=== PATIENT | male | born 1965 | race Caucasian/White ===

== ENCOUNTER 2018-06-05 09:15 | Inpatient (IN) | payer OTHER, SELFPAY ==
[2018-06-05] MEDS ORDERED: Bivalirudin 250 MG VIAL ONE (09:27)
[2018-06-05] MEDS ORDERED: Heparin 10,000 UNITS/1 ML VIAL ONE ×3 (09:27→17:40)
[2018-06-05] MEDS ORDERED: Nitroglycerin 100MG/250ML BOT 0 ML ONE (09:27)
[2018-06-05] MEDS ORDERED: Ondansetron PF 4 MG/2 ML Vial ONE (09:27)
[2018-06-05] MEDS ORDERED: Metoprolol Tartrate 5 MG/5 ML VIAL ONE (09:28)
[2018-06-05 09:35] LABS: #Basophils 0.1 thou/uL (0.0-0.2); #Eosinphils 0.2 thou/uL (0.0-0.7); #Lymphocytes 1.8 thou/uL (1.20-3.40); #Monocytes 0.7 thou/uL (0.11-0.59); #Neutrophils 4.1 thou/uL (1.40-6.50); %Basophils 0.9 % (0.0-1.0); %Eosinophils 3.1 % (0.0-10.0); %Lymphocytes 26.4 % (21.0-51.0); %Monocytes 9.6 % (0.0-10.0); Hemoglobin 16.8 g/dL (14.0-18.0); Mean Corpuscular HGB CONC 35.1 g/dL (32.0-36.0); Mean Corpuscular Hemoglobin 30.5 pg (27.0-31.0); Mean Platelet Volume 8.1 fL (7.4-10.4); Platelet Count 227 thou/uL (130-400); RBC Distribution Width 11.5 % (11.5-14.5); Red Blood Cell (RBC) Count 5.53 mill/uL (4.70-6.10); White Blood Cell (WBC) Count 6.9 thou/uL (4.8-10.8)
[2018-06-05 09:41] LABS: PTT 28.6 SEC (22.9-36.1); Prothrombin Time 13.2 SEC (12.0-14.7)
[2018-06-05] MEDS ORDERED: Fentanyl 100 MCG/2 ML VIAL ONE (09:53)
[2018-06-05] MEDS ORDERED: Midazolam HCl 2 mg/2 ml Vial ONE (09:53)
[2018-06-05 09:58] LABS: ALT (SGPT) 41 U/L (8-55); AST (SGOT) 29 U/L (5-34); Albumin 4.7 g/dL (3.5-5.0); Alkaline Phosphatase 94 U/L (40-150); Anion Gap 15 mmol/L (10-20); BUN (Urea Nitrogen) 20 mg/dL (8.4-25.7); Bilirubin, Total 0.6 mg/dL (0.2-1.2); CK (CPK) 428 U/L (30-200); Calc. Creatinine Clearance 0 mL/min (70-130); Carbon Dioxide 25 mmol/L (22-29); Chloride 102 mmol/L (98-107); Estimated GFR-MDRD 67; Globulin 2.5 g/dL (2.4-3.5); Glucose 140 mg/dL (70-105); Lipase 33 U/L (8-78); Potassium 4.4 mmol/L (3.5-5.1); Protein, Total 7.2 g/dL (6.0-8.3); Sodium 138 mmol/L (136-145)
[2018-06-05] MEDS ORDERED: Clopidogrel Bisulfate 300 MG TAB ONE (10:08)
[2018-06-05] MEDS ORDERED: Nitroglycerin 0.4 MG TAB (25 Tab Bottle) SL PRN (10:22)
[2018-06-05] MEDS ORDERED: Morphine 4 MG/ML VIAL SLOW IVP PRN (10:22)
[2018-06-05] MEDS ORDERED: Aggrastat 12.5 MG/250 ML 250 ML ONE (10:25)
[2018-06-05] MEDS ORDERED: Sodium Chloride 0.9% 1,000 ML IV SCH (10:30)
[2018-06-05] MEDS ORDERED: Aggrastat 12.5 MG/250 ML 250 ML IVPB SCH (10:30)
[2018-06-05 10:45] VITALS: BMI 29.9
--- NOTE | 2018-06-05 11:05 | RAD ---
PORTABLE UPRIGHT FRONTAL CHEST RADIOGRAPH: DATE: 06/05/2018. COMPARISON: None. History Diaphoresis, chest pain, syncope. FINDINGS: No pneumothorax or pleural fluid. No focal consolidation or alveolar edema. Heart and mediastinal c ontour is unremarkable. IMPRESSION: No acute findings. POS: [facility]
[2018-06-05] MEDS: Amiodarone 450 MG in Dextrose 5% in Water 250 ML IVPB SCH ×2 (11:38→19:02)
[2018-06-05] MEDS: Morphine 2 MG/ML SYRINGE SLOW IVP PRN ×2 (14:17→21:25)
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
[2018-06-06 00:04] LABS: CKMB 33.1 ng/mL (0-6.6)
[2018-06-06 06:34] LABS: #Eosinphils 0.2 thou/uL (0.0-0.7); #Lymphocytes 2.1 thou/uL (1.20-3.40); #Monocytes 0.7 thou/uL (0.11-0.59); #Neutrophils 5.1 thou/uL (1.40-6.50); %Basophils 0.5 % (0.0-1.0); %Eosinophils 2.4 % (0.0-10.0); %Lymphocytes 25.2 % (21.0-51.0); %Monocytes 8.8 % (0.0-10.0); Hemoglobin 15.1 g/dL (14.0-18.0); Mean Corpuscular HGB CONC 34.7 g/dL (32.0-36.0); Mean Corpuscular Hemoglobin 30.4 pg (27.0-31.0); Mean Corpuscular Volume 87.6 fL (78.0-98.0); Mean Platelet Volume 8.2 fL (7.4-10.4); Platelet Count 216 thou/uL (130-400); RBC Distribution Width 11.5 % (11.5-14.5); Red Blood Cell (RBC) Count 4.97 mill/uL (4.70-6.10); White Blood Cell (WBC) Count 8.1 thou/uL (4.8-10.8)
[2018-06-06 06:57] LABS: ALT (SGPT) 37 U/L (8-55); AST (SGOT) 49 U/L (5-34); Albumin 3.9 g/dL (3.5-5.0); Alkaline Phosphatase 79 U/L (40-150); Anion Gap 12 mmol/L (10-20); BUN (Urea Nitrogen) 15 mg/dL (8.4-25.7); Bilirubin, Total 0.6 mg/dL (0.2-1.2); Calc. Creatinine Clearance 104 mL/min (70-130); Calcium 9.5 mg/dL (7.8-10.44); Carbon Dioxide 24 mmol/L (22-29); Chloride 106 mmol/L (98-107); Cholesterol 271 mg/dl (< 200 Desired); Estimated GFR-MDRD 67; Globulin 2.5 g/dL (2.4-3.5); Glucose 111 mg/dL (70-105); HDL Cholesterol 34 mg/dL (>60 Neg Risk); LDL Cholesterol, Calculated 190 mg/dL; Potassium 4.3 mmol/L (3.5-5.1); Protein, Total 6.4 g/dL (6.0-8.3); Sodium 138 mmol/L (136-145); Triglycerides 236 mg/dL (Less than 150)
[2018-06-06 07:08] LABS: Critical Call Chem Troponin I RESULT DECREASING
[2018-06-06 07:29] LABS: CKMB 26.2 ng/mL (0-6.6); Critical Call CKMB RESULT DECREASING
[2018-06-06] MEDS: Clopidogrel Bisulfate 75 MG TAB PO SCH (08:09)
[2018-06-06] MEDS: Metoprolol Tartrate 25 MG TAB PO SCH (20:26)
[2018-06-06] MEDS: Atorvastatin Calcium 40 MG TAB PO SCH (20:26)
[2018-06-06] MEDS: Morphine 2 MG/ML SYRINGE SLOW IVP PRN (20:30)
[2018-06-07] MEDS: Clopidogrel Bisulfate 75 MG TAB PO SCH (09:19)
[2018-06-07] MEDS: Metoprolol Tartrate 25 MG TAB PO SCH ×2 (09:19→19:52)
--- NOTE | 2018-06-07 17:11 | EKG ---
Test Reason : Blood Pressure : / mmHG Vent. Rate : 068 BPM Atrial Rate : 068 BPM P-R Int : 154 ms QRS Dur : 110 ms QT Int : 420 ms P-R-T Axes : 037 -17 031 degrees QTc Int : 446 ms Normal sinus rhythm Low voltage QRS Incomplete right bundle branch block Inferior infarct (cited on or before 05-JUN-2018) Cannot rule out Anterior infarct , age undetermined Abnormal ECG When compared with ECG of 05-JUN-2018 09:19, (Unconfirmed) Sinus rhythm has replaced Atrial fibrillation Vent. rate has decreased BY 48 BPM Minimal criteria for Anterior infarct are now Present Serial changes of evolving Inferior infarct Present Confirmed by DR. Mildred BLOOM ([id number]) on 06/07/2018 5:11:25 PM Referred By: JEREL Confirmed By:DR. Mildred BLOOM
[2018-06-07] MEDS: Atorvastatin Calcium 40 MG TAB PO SCH (19:52)
[2018-06-08] MEDS: Metoprolol Tartrate 25 MG TAB PO SCH ×2 (09:15→21:02)
[2018-06-08] MEDS: Clopidogrel Bisulfate 75 MG TAB PO SCH (09:15)
[2018-06-08] MEDS: Atorvastatin Calcium 40 MG TAB PO SCH (21:01)
[2018-06-08] MEDS ORDERED: Communication Order-Pharmacy FS SCH (21:15)
[2018-06-09] MEDS: Clopidogrel Bisulfate 75 MG TAB PO SCH (05:29)
[2018-06-09] MEDS ORDERED: Sodium Chloride 0.9% 1,000 ML IV SCH ×2 (06:00→08:14)
[2018-06-09] MEDS ORDERED: Heparin 10,000 UNITS/1 ML VIAL ONE (06:34)
[2018-06-09] MEDS ORDERED: Midazolam HCl 2 mg/2 ml Vial ONE (07:07)
[2018-06-09] MEDS ORDERED: Fentanyl 100 MCG/2 ML VIAL ONE (07:07)
[2018-06-09] MEDS ORDERED: Bivalirudin 250 MG VIAL ONE (07:22)
[2018-06-09] MEDS ORDERED: Nitroglycerin 100MG/250ML BOT 250 ML ONE (07:41)
[2018-06-09] MEDS ORDERED: Morphine 2 MG/ML SYRINGE SLOW IVP PRN (08:51)
[2018-06-09] MEDS ORDERED: Metoprolol Tartrate 25 MG TAB PO SCH (09:00)
[2018-06-09] MEDS ORDERED: Iopamidol 370 76% 100 ML VIAL ONE (11:53)
[2018-06-09] MEDS ORDERED: Iopamidol 370 76% 50 ML VIAL FS ONE (11:53)
[2018-06-09] MEDS: Carvedilol 3.125 MG TAB PO SCH ×2 (12:35→17:26)
[2018-06-09] MEDS: Atorvastatin Calcium 40 MG TAB PO SCH (20:52)
[2018-06-10 05:12] LABS: #Eosinphils 0.3 thou/uL (0.0-0.7); #Lymphocytes 1.9 thou/uL (1.20-3.40); #Monocytes 0.8 thou/uL (0.11-0.59); #Neutrophils 4.9 thou/uL (1.40-6.50); %Basophils 0.4 % (0.0-1.0); %Eosinophils 3.3 % (0.0-10.0); %Lymphocytes 24.6 % (21.0-51.0); %Monocytes 9.5 % (0.0-10.0); %Neutrophils 62.2 % (42.0-75.0); Hemoglobin 15.4 g/dL (14.0-18.0); Mean Corpuscular HGB CONC 34.4 g/dL (32.0-36.0); Mean Corpuscular Hemoglobin 29.8 pg (27.0-31.0); Mean Corpuscular Volume 86.6 fL (78.0-98.0); Mean Platelet Volume 8.1 fL (7.4-10.4); Platelet Count 219 thou/uL (130-400); RBC Distribution Width 11.3 % (11.5-14.5); Red Blood Cell (RBC) Count 5.18 mill/uL (4.70-6.10); White Blood Cell (WBC) Count 7.8 thou/uL (4.8-10.8)
[2018-06-10 05:44] LABS: ALT (SGPT) 34 U/L (8-55); AST (SGOT) 18 U/L (5-34); Alkaline Phosphatase 91 U/L (40-150); Anion Gap 12 mmol/L (10-20); BUN (Urea Nitrogen) 16 mg/dL (8.4-25.7); Bilirubin, Total 0.6 mg/dL (0.2-1.2); Calc. Creatinine Clearance 104 mL/min (70-130); Calcium 9.7 mg/dL (7.8-10.44); Carbon Dioxide 24 mmol/L (22-29); Chloride 104 mmol/L (98-107); Estimated GFR-MDRD 70; Globulin 2.6 g/dL (2.4-3.5); Glucose 114 mg/dL (70-105); Potassium 4.3 mmol/L (3.5-5.1); Protein, Total 6.6 g/dL (6.0-8.3); Sodium 136 mmol/L (136-145)
[2018-06-10 08:58] VITALS: BP 121/78; TEMP 99
[2018-06-10] MEDS: Clopidogrel Bisulfate 75 MG TAB PO SCH (09:04)
[2018-06-10] MEDS: Carvedilol 3.125 MG TAB PO SCH (09:04)
--- NOTE | 2018-06-10 16:07 | CCL ---
CARDIAC CATHETERIZATION REPORT: Date: 06/09/18 PROCEDURE: Left ventriculogram, left coronary arteriography, stent placement mid LAD. INDICATION: Severe LAD disease. Post stent placement in the right coronary artery for inferior STEMI> DESCRIPTION OF PROCEDURE: The patient was brought to the cardiac poultry farm laborer and the right groin was prepped and draped in the usu al fashion. 1% lidocaine was infiltrated. Versed 1 mg and Fentanyl 25 mg given intravenously for mode rate conscious sedation with patient monitored appropriately. 1% lidocaine was infiltrated to the rig ht groin.. A 6 Bulgarian sheath was placed into the right femoral artery. A 6 Bulgarian angulated pigtail w as inserted and pressures were obtained. Left ventriculogram was performed using 30 ml of contrast at 12 ml/s in a ZIMMER 30 degree projection. Pressures were obtained and the pigtail was removed. A 6 Fren ch Criss left-4 guide catheter was inserted. Floppy Choice wires were advanced into the first diago nal and into the distal LAD. Synergy 3.0 x 28 mm stent was then positioned and deployed. Final result was excellent. There was some spasm at the end of the distal stent and nitroglycerin 100 mcg were gi diane, with improvement of the coronary spasm. The sheath was sutured in place. Angiomax was used for a nticoagulation during the procedure. RESULTS: PRESSURES: Aorta 98/64, mean of 80 Left Ventricle 104/8 LEFT VENTRICULOGRAM: Global left ventricular hypokinesis with ejection fraction of 40-45%. INTERVENTION RESULTS: The initial mid LAD lesion was 80%; final lesion was 0%. IMPRESSION: 1. Two vessel coronary artery disease (LAD and RCA with previous stenting of the RCA during inferior STEMI). 2. Mild left ventricular dysfunction. 3. Successful drug-eluting stent placement in the mid LAD.
--- NOTE | 2018-06-11 04:01 | DIS ---
DATE OF ADMISSION: 06/05/2018 DATE OF DISCHARGE: 06/10/2018 DISCHARGE DIAGNOSES: 1. Inferior ST-elevation myocardial infarction with drug-eluting stent placed in the mid RCA. 2. Two-vessel coronary artery disease with drug-eluting stent placed in the mid LAD several days later. 3. Hypercholesterolemia. 4. Tobacco chewer. 5. Positive family history. 6. Atrial fibrillation on admission converted to sinus rhythm with IV amiodarone. DISCHARGE DISPOSITION: The patient will be seen on July 22 for followup with complete metabolic profile, fasting lipid profile, and EKG. He was told on a daily basis that he should never use nicotine again and we discussed low-cholesterol diet. DISCHARGE MEDICATIONS: 1. Nitroglycerin 0.4 mg sublingually p.r.n. 2. Atorvastatin 80 mg daily. 3. Carvedilol 3.125 mg b.i.d. 4. Plavix 75 mg daily x1 year. HOSPITAL COURSE: Mr. Lombardi presented on June 05 with chest discomfort and ST-segment elevation in the inferior leads. He was taken to the cardiac dental laboratory technician apprentice emergently. There was an 80% mid LAD with thrombus distal to the lesion, 30% first diagonal, normal circumflex. The right coronary artery is totally occluded in its midportion. The distal vessel filled retrograde from the left. Synergy 4.0 x 20 mm stent was positioned and deployed with reduction of the lesion to 0%. When he presented, he was in atrial fibrillation. He was started on IV amiodarone and over the course of the night, converted to sinus rhythm and the amiodarone was discontinued. Peak troponin I was 9.440. Peak CK-MB was 33.1. Cholesterol was 271, triglycerides 236, HDL 34, LDL 190. He was placed on maximum dose of atorvastatin. We discussed multiple times a low-cholesterol, low-carbohydrate diet. On June 09, he returned to the dental laboratory technician apprentice and underwent left ventriculogram which revealed global hypokinesis with ejection fraction of 40% to 45%. Synergy 3.0 x 28 mm stent was placed in the mid LAD with reduction from 80% to 0%. Deserved overnight and then discharged. Job ID: [id number]
--- NOTE | 2018-06-11 20:47 | EKG ---
Test Reason : POST STENT Blood Pressure : / mmHG Vent. Rate : 058 BPM Atrial Rate : 058 BPM P-R Int : 182 ms QRS Dur : 102 ms QT Int : 414 ms P-R-T Axes : 037 007 004 degrees QTc Int : 406 ms Sinus bradycardia Incomplete right bundle branch block Inferior infarct , age undetermined Abnormal ECG Confirmed by Matheus DANG ([id number]) on 06/11/2018 8:47:20 PM Referred By: JEREL Confirmed By:Matheus DANG
--- NOTE | 2018-06-11 20:55 | EKG ---
Test Reason : Blood Pressure : / mmHG Vent. Rate : 061 BPM Atrial Rate : 061 BPM P-R Int : 168 ms QRS Dur : 108 ms QT Int : 408 ms P-R-T Axes : 039 -10 -06 degrees QTc Int : 410 ms Normal sinus rhythm Incomplete right bundle branch block Inferior infarct (cited on or before 05-JUN-2018) Abnormal ECG When compared with ECG of 09-JUN-2018 08:15, (Unconfirmed) No significant change was found Confirmed by Matheus DANG ([id number]) on 06/11/2018 8:55:10 PM Referred By: JEREL Confirmed By:Matheus DANG
--- NOTE | 2018-06-12 13:43 | EKG ---
Test Reason : Blood Pressure : / mmHG Vent. Rate : 116 BPM Atrial Rate : 125 BPM P-R Int : 000 ms QRS Dur : 112 ms QT Int : 340 ms P-R-T Axes : 000 056 090 degrees QTc Int : 472 ms Atrial fibrillation with rapid ventricular response with premature ventricular or aberrantly conducte d complexes Incomplete right bundle branch block Inferior infarct , possibly acute * ACUTE IN * --possible posterior component Consider right ventricular involvement in acute inferior infarct Abnormal ECG Confirmed by DOMINIC CHRISTIANSON, VICKI ([id number]), visual effects editor SATHISH PANIAGUA ([id number]) on 06/12/2018 1:43:20 PM Referred By: Confirmed By:VICKI ALFARO MD
== END 2018-06-10 11:10 | disposition home or self-care (01) | DRG 247 ==
LOC: ERS 09:15 → CCL 09:39 → CCU 09:55 → 2NO 06-07 18:01
PROVIDERS: ADMIT Internal Medicine Cardiovascular Disease; ATTEND Internal Medicine Cardiovascular Disease
PROC: 4A023N7 Measurement of Cardiac Sampling and Pressure, Left Heart, Percutaneous Approach (ICD-10-PCS; principal; 2018-06-05)
PROC: 02C03ZZ Extirpation of Matter from Coronary Artery, One Artery, Percutaneous Approach (ICD-10-PCS; 2018-06-05)
PROC: 027034Z Dilation of Coronary Artery, One Artery with Drug-eluting Intraluminal Device, Percutaneous Approach (ICD-10-PCS; 2018-06-05)
PROC: B2111ZZ Fluoroscopy of Multiple Coronary Arteries using Low Osmolar Contrast (ICD-10-PCS; 2018-06-05)
PROC: 027034Z Dilation of Coronary Artery, One Artery with Drug-eluting Intraluminal Device, Percutaneous Approach (ICD-10-PCS; 2018-06-09)
PROC: B2151ZZ Fluoroscopy of Left Heart using Low Osmolar Contrast (ICD-10-PCS; 2018-06-09)
PROC: 4A023N7 Measurement of Cardiac Sampling and Pressure, Left Heart, Percutaneous Approach (ICD-10-PCS; 2018-06-09)
PROC: B2111ZZ Fluoroscopy of Multiple Coronary Arteries using Low Osmolar Contrast (ICD-10-PCS; 2018-06-09)
DX: I21.19 ST elevation (STEMI) myocardial infarction involving other coronary artery of inferior wall (principal); I25.119 Atherosclerotic heart disease of native coronary artery with unspecified angina pectoris; E78.00 Pure hypercholesterolemia, unspecified; F17.220 Nicotine dependence, chewing tobacco, uncomplicated; Z82.49 Family history of ischemic heart disease and other diseases of the circulatory system; I48.91 Unspecified atrial fibrillation; I10 Essential (primary) hypertension; E11.9 Type 2 diabetes mellitus without complications; R55 Syncope and collapse; S00.31XA Abrasion of nose, initial encounter
CPT/HCPCS: 36415; 37212; 71045; 80053; 80061; 82550; 82553; 83036; 83690; 84484; 85025; 85347; 85610; 85730; 86850; 86900; 86901; 92928; 92941; 93005; 93010; 93458; 93798; 94760; 96374; 96375; 99152; 99153; C1769; C1874; C1887; C9600; C9606; J0583; J1644; J2250; J2270; J2405; J3010; J3246; J7070

== ENCOUNTER 2018-08-17 18:12 | Emergency (ER) | payer OTHER, SELFPAY ==
[2018-08-17] MEDS ORDERED: Ketorolac Tromethamine 30 MG/ML VIAL ONE (21:12)
--- NOTE | 2018-08-17 21:29 | ULT ---
VENOUS DUPLEX SONOGRAM LEFT UPPER EXTREMITY: 08/17/18 HISTORY: Left arm pain and edema. FINDINGS: The left internal jugular and subclavian veins are evaluated along with the axillary, brachial, cepha lic and basilic veins. Good color and spectral doppler flow and compression. No internal echoes. IMPRESSION: No sonographic evidence of DVT within the left upper extremity. POS: [facility]
== END 2018-08-17 21:43 | disposition home or self-care (01) ==
LOC: ERS 18:12
DX: M79.602 Pain in left arm (principal); I10 Essential (primary) hypertension; I25.2 Old myocardial infarction; F17.220 Nicotine dependence, chewing tobacco, uncomplicated
CPT/HCPCS: 96372; J1885

== ENCOUNTER 2018-10-14 13:47 | Emergency (ER) | payer OTHER, SELFPAY ==
[2018-10-14] MEDS ORDERED: Morphine 4 MG/ML VIAL ONE (14:11)
[2018-10-14] MEDS ORDERED: Ondansetron PF 4 MG/2 ML Vial ONE (14:12)
[2018-10-14 14:27] LABS: #Eosinphils 0.3 thou/uL (0.0-0.7); #Lymphocytes 2.2 thou/uL (1.20-3.40); #Monocytes 0.7 thou/uL (0.11-0.59); #Neutrophils 5.2 thou/uL (1.40-6.50); %Basophils 0.2 % (0.0-1.0); %Eosinophils 3.1 % (0.0-10.0); %Lymphocytes 25.8 % (21.0-51.0); %Monocytes 8.8 % (0.0-10.0); %Neutrophils 62.2 % (42.0-75.0); Hemoglobin 15.4 g/dL (14.0-18.0); Mean Corpuscular HGB CONC 34.9 g/dL (32.0-36.0); Mean Corpuscular Hemoglobin 30.5 pg (27.0-31.0); Mean Corpuscular Volume 87.3 fL (78.0-98.0); Platelet Count 203 thou/uL (130-400); RBC Distribution Width 11.9 % (11.5-14.5); Red Blood Cell (RBC) Count 5.04 mill/uL (4.70-6.10); White Blood Cell (WBC) Count 8.4 thou/uL (4.8-10.8)
--- NOTE | 2018-10-14 14:36 | RAD ---
PORTABLE CHEST ONE VIEW: 10/14/18 at 1:54 p.m. HISTORY: Chest pain. FINDINGS/IMPRESSION: Comparison made with exam of 06/05/18. The heart size is normal. No lobar consolidation, pneumothoraces, korey pulmonary edema or pleural ef fusions are seen. POS: [facility]
[2018-10-14 14:51] LABS: ALT (SGPT) 38 U/L (8-55); AST (SGOT) 23 U/L (5-34); Albumin 4.6 g/dL (3.5-5.0); Alkaline Phosphatase 86 U/L (40-150); Anion Gap 13 mmol/L (10-20); BUN (Urea Nitrogen) 21 mg/dL (8.4-25.7); Bilirubin, Total 0.7 mg/dL (0.2-1.2); Calc. Creatinine Clearance 0 mL/min (70-130); Calcium 10.2 mg/dL (7.8-10.44); Carbon Dioxide 22 mmol/L (22-29); Chloride 108 mmol/L (98-107); Estimated GFR-MDRD 77; Globulin 2.2 g/dL (2.4-3.5); Glucose 103 mg/dL (70-105); Potassium 4.1 mmol/L (3.5-5.1); Protein, Total 6.8 g/dL (6.0-8.3); Sodium 139 mmol/L (136-145)
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
[2018-10-14] MEDS ORDERED: Fentanyl 100 MCG/2 ML VIAL ONE (15:29)
[2018-10-14] MEDS ORDERED: Nitroglycerin 2% Ointment 1 INCH/1 GM Packet ONE (15:29)
[2018-10-14 18:39] LABS: Troponin I Less than 0.010 ng/mL (< 0.028)
== END 2018-10-14 19:15 | disposition home or self-care (01) ==
LOC: ERS 13:47
DX: R07.9 Chest pain, unspecified (principal); I10 Essential (primary) hypertension; I25.2 Old myocardial infarction; F17.220 Nicotine dependence, chewing tobacco, uncomplicated; V43.53XA Car driver injured in collision with pick-up truck in traffic accident, initial encounter
CPT/HCPCS: 36415; 71045; 71260; 80053; 84484; 85025; 93005; 96374; 96375; J2270; J2405; J3010